=== PATIENT | female | born 1995 | race Hispanic/Latino ===

== ENCOUNTER 2017-07-23 12:34 | Emergency (ER) | payer MEDICAID, OTHER ==
[2017-07-23 12:59] LABS: Oxyhemoglobin 88.2 % (94.0-97.0); Sodium 141 mmol/L (135-148)
[2017-07-23 13:00] LABS: Modified Allen's Test POSITIVE; Spontaneous Rate 17 min; Vent NO
--- NOTE | 2017-07-23 13:42 | RAD ---
PORTABLE CHEST 1 VIEW: Date: 07/23/17 Time: 1250 hours HISTORY: Respiratory distress. FINDINGS: There are changes of median sternotomy. Heart size is normal. The lungs are well expanded without foc al areas of consolidation, pneumothorax, yosvany pulmonary edema, or pleural effusions. IMPRESSION: No acute process. POS: C
[2017-07-23 13:44] LABS: Hematocrit 38.5 % (36.0-47.0); Red Blood Cell (RBC) Count 3.56 mill/uL (4.20-5.40); White Blood Cell (WBC) Count 12.3 thou/uL (4.8-10.8)
[2017-07-23 13:57] LABS: ALT (SGPT) 27 U/L (8-55); AST (SGOT) 48 U/L (5-34); Alkaline Phosphatase 63 U/L (40-150); Anion Gap 15 mmol/L (10-20); BUN (Urea Nitrogen) 22 mg/dL (7.0-18.7); Bilirubin, Total 0.6 mg/dL (0.2-1.2); Calc. Creatinine Clearance 0 mL/min (70-130); Carbon Dioxide 24 mmol/L (22-29); Chloride 102 mmol/L (98-107); Estimated GFR-MDRD 35; Globulin 4.6 g/dL (2.4-3.5); Protein, Total 8.3 g/dL (6.0-8.3)
[2017-07-23 14:03] LABS: Troponin I 0.257 ng/mL (< 0.028)
[2017-07-23 14:11] LABS: #Eosinphils 0.1 thou/uL (0.0-0.7); #Monocytes 0.6 thou/uL (0.11-0.59); #Neutrophils 10.6 thou/uL (1.40-6.50); %Basophils 0.3 % (0.0-1.0); %Eosinophils 0.5 % (0.0-10.0); Anisocytosis SLIGHT = 6-15 cells (100X) (0-5/hpf); Macrocytosis SLIGHT = 6-15 cells (100X) (0-5/hpf); Polychromasia SLIGHT = 2-3 cells (100X) (0-2/hpf)
[2017-07-23] MEDS ORDERED: Piperacillin/Tazobactam 4.5 GM in Sodium Chloride 0.9% 100 ML IVPB ONE (14:30)
--- NOTE | 2017-07-25 15:40 | EKG ---
Test Reason : SOB Blood Pressure : / mmHG Vent. Rate : 115 BPM Atrial Rate : 115 BPM P-R Int : 134 ms QRS Dur : 110 ms QT Int : 356 ms P-R-T Axes : -06 -07 011 degrees QTc Int : 492 ms Sinus tachycardia Incomplete right bundle branch block Minimal voltage criteria for LVH, may be normal variant Nonspecific T wave abnormality Abnormal ECG Confirmed by JOANNA DAMON D.O. ([id number]), city editor DIYA LEON ([id number]) on 07/25/2017 3:40:24 PM Referred By: Confirmed By:JOANNA DAMON D.O.
== END 2017-07-23 18:05 | disposition short-term general hospital (02) ==
LOC: ERS 12:34
DX: J06.9 Acute upper respiratory infection, unspecified (principal); R06.03 Acute respiratory distress; F31.9 Bipolar disorder, unspecified; F41.9 Anxiety disorder, unspecified; I50.9 Heart failure, unspecified; J45.909 Unspecified asthma, uncomplicated; Q90.9 Down syndrome, unspecified; Z79.899 Other long term (current) drug therapy
CPT/HCPCS: 36415; 71010; 80053; 82553; 82805; 84484; 85025; 87040; 93005; 94660; 96361; 96365; 96367; J2543; J3370; J7050